=== PATIENT | male | born 1955 | race Caucasian/White ===

== ENCOUNTER → 2016-08-15 | Outpatient (CLI) | payer BC | LOC: BMCIMAGING 08:11 | PROVIDERS: ATTEND Internal Medicine Endocrinology, Diabetes & Metabolism | DX: E04.1 Nontoxic single thyroid nodule (principal) ==

== ENCOUNTER → 2016-10-01 | Outpatient (CLI) | payer BC | LOC: BMCIMAGING 11:31 | PROVIDERS: ATTEND Urology | DX: Z87.442 Personal history of urinary calculi (principal); N28.9 Disorder of kidney and ureter, unspecified ==